=== PATIENT | male | born 1940 | race Caucasian/White ===

== ENCOUNTER 2016-07-07 09:57 | Emergency (ER) | payer MEDICARE, OTHER ==
[2016-07-07] MEDS ORDERED: Lidocaine 1% with EPINEPHrine 1:100,000 20 ML MDV INJECT ONE (10:31)
[2016-07-07] MEDS ORDERED: cefTRIAXone 250 MG Vial IM ONE (11:06)
[2016-07-07] MEDS ORDERED: cefTRIAXone 1,000 MG VIAL IM ONE (11:30)
--- NOTE | 2016-07-07 11:39 | EDM.PDOC ---
ED HPI GENERAL MEDICAL PROBLEM - General Chief Complaint: General Stated Complaint: UNDER ARM Time Seen by Provider: 07/07/16 10:31 Source of Information: Reports: Patient History Limitations: Reports: No Limitations - History of Present Illness INITIAL COMMENTS - FREE TEXT/NARRATIVE: History of present illness: [26-year-old male presenting with an abscess to right axillary region. Patient has strained some amount of purulent drainage from it but has not managed to totally evacuate it at this time] Review of systems: As per history of present illness and below otherwise all systems reviewed and negative. Past medical history: As per history of present illness and as reviewed below otherwise noncontributory. Surgical history: As per history of present illness and as reviewed below otherwise noncontributory. Social history: No reported history of drug or alcohol abuse. Family history: As per history of present illness and as reviewed below otherwise noncontributory. Physical exam: HEENT: Atraumatic, normocephalic, pupils reactive, negative for conjunctival pallor or scleral icterus, mucous membranes moist, throat clear, neck supple, nontender, trachea midline. Lungs: Clear to auscultation, breath sounds equal bilaterally, chest nontender. Heart: S1S2, regular, negative for clicks, rubs, or JVD. Abdomen: Soft, nondistended, nontender. Negative for masses or hepatosplenomegaly. Negative for costovertebral tenderness. Pelvis: Stable nontender. Genitourinary: Deferred. Rectal: Deferred. Extremities: Atraumatic, negative for cords or calf pain. Neurovascular unremarkable. Neuro: Awake, alert, oriented. Cranial nerves II through XII unremarkable. Cerebellum unremarkable. Motor and sensory unremarkable throughout. Exam nonfocal. Skin: Infected sebaceous cyst in right axillary region Area cleaned in the usual fashion with sterile 11 blade used to make a small incision with manual drainage performed with a culture swab obtained. Diagnostics: [] Therapeutics: [Rocephin, I&D] Impression: [Infected sebaceous cyst] Plan: [By mouth antibiotics followup with primary care] Definitive disposition and diagnosis as appropriate pending reevaluation and review of above. - Related Data Allergies Allergy/AdvReac Type Severity Reaction Status Date / Time No Known Allergies Allergy Verified 07/07/16 10:08 Home Meds: Home Meds Lisinopril 20 mg PO DAILY 07/07/16 [History] Omeprazole Magnesium [Prilosec Otc] 20 mg PO DAILY 07/07/16 [History] Sulfamethoxazole/Trimethoprim [Bactrim Ds Tablet] 1 each PO BID #20 tablet 07/07 [Rx] Past Medical History Cardiovascular History: Reports: Hypertension Gastrointestinal History: Reports: Hiatal Hernia - Infectious Disease History Infectious Disease History: Reports: Chicken Pox, Mumps - Past Surgical History Other Musculoskeletal Surgeries/Procedures:: left knee replacement Social & Family History - Tobacco Use Smoking Status *Q: Never Smoker Second Hand Smoke Exposure: No - Caffeine Use Caffeine Use: Reports: Energy Drinks Caffeine Use Comment: 1drink/week - Recreational Drug Use Recreational Drug Use: No ED ROS GENERAL - Review of Systems Review Of Systems: See Below (See history of present illness) ED EXAM, GENERAL - Physical Exam Exam: See Below (History of present illness) Course - Vital Signs Last Recorded V/S: Last Vital Signs Temp 36.5 C 07/07/16 11:06 Pulse 90 07/07/16 11:06 Resp 16 07/07/16 11:06 BP 131/82 07/07/16 11:06 Pulse Ox 93 L 07/07/16 11:06 - Orders/Labs/Meds Meds: Medications Discontinued Medications Generic Name Dose Route Start Last Admin Trade Name Shayna PRN Reason Stop Dose Admin Ceftriaxone Sodium 2,000 mg 07/07/16 11:06 Rocephin IM 07/07/16 11:07 ONETIME ONE Lidocaine/Epinephrine 20 ml 07/07/16 10:31 Xylocaine 1% With Epinephrine 1:100,000 INJECT 07/07/16 10:32 ONETIME ONE Departure - Departure Time of Disposition: 11:40 Disposition: Home, Self-Care 01 Condition: good Clinical Impression: Sebaceous cyst of right axilla - Discharge Information Prescriptions: Sulfamethoxazole/Trimethoprim [Bactrim Ds Tablet] 1 each PO BID #20 tablet Forms: ED Department Discharge Additional Instructions: The following information is given to patients seen in the emergency department who are being discharged to home. This information is to outline your options for follow-up care. We provide all patients seen in our emergency department with a follow-up referral. The need for follow-up, as well as the timing and circumstances, are variable depending upon the specifics of your emergency department visit. If you don't have a primary care physician on staff, we will provide you with a referral. We always advise you to contact your personal physician following an emergency department visit to inform them of the circumstance of the visit and for follow-up with them and/or the need for any referrals to a consulting specialist. The emergency department will also refer you to a specialist when appropriate. This referral assures that you have the opportunity for follow-up care with a specialist. All of these measure are taken in an effort to provide you with optimal care, which includes your follow-up. Under all circumstances we always encourage you to contact your private physician who remains a resource for coordinating your care. When calling for follow-up care, please make the office aware that this follow-up is from your recent emergency room visit. If for any reason you are refused follow-up, please contact the [facility] Emergency Department at and asked to speak to the emergency department charge nurse. Take medication as directed Followup with PCP 1-2 day Return to ED as needed as discussed
[2016-07-07] MEDS ORDERED: CEFTRIAXONE IM ONE (11:45)
[2016-07-07] MEDS ORDERED: LIDOCAINE 1% IM ONE (11:45)
[2016-07-07] MEDS ORDERED: Lidocaine 1% 6 ML ONE (11:53)
[2016-07-07 12:15] VITALS: BP 122/71
== END 2016-07-07 12:14 | disposition home or self-care (01) ==
LOC: MW.ED 09:57
DX: L72.3 Sebaceous cyst (principal); Z96.652 Presence of left artificial knee joint; I10 Essential (primary) hypertension; Z79.899 Other long term (current) drug therapy
CPT/HCPCS: 10060; 96372; 99283; J0696; 10061

== ENCOUNTER 2016-12-15 06:41 | Day surgery (SDC) | payer MEDICARE, OTHER ==
[2016-12-15] MEDS ORDERED: Lidocaine 2% 5 ML SDV ONE (07:10)
[2016-12-15] MEDS ORDERED: Propofol 200 MG/20 ML SDV ONE (07:10)
[2016-12-15] MEDS ORDERED: fentaNYL 100 MCG/2 ML SDV ONE (07:10)
--- NOTE | 2016-12-15 07:30 | PCM.PREANE ---
Preanesthetic Assessment - Anesthesia/Transfusion/Family Hx Anesthesia History: Prior Anesthesia Without Reaction Transfusion History: No Prior Transfusion(s) - Review of Systems General: No Symptoms Pulmonary: No Symptoms Cardiovascular: No Symptoms Gastrointestinal: No Symptoms Neurological: No Symptoms Other: Reports: None - Physical Assessment NPO Status Date: 12/14/16 O2 Sat by Pulse Oximetry: 97 Respiratory Rate: 16 Vital Signs: Last Vital Signs Temp 36.6 C 12/15/16 07:15 Pulse 66 12/15/16 07:15 Resp 16 12/15/16 07:15 BP 125/81 12/15/16 07:15 Pulse Ox 97 12/15/16 07:15 Height: 1.65 m Weight: 70.307 kg ASA Class: 2 Mental Status: Alert & Oriented x3 Airway Class: Mallampati = 2 Dentition: Reports: Normal Dentition, Missing Tooth/Teeth ROM/Head Extension: Full Lungs: Clear to Auscultation, Normal Respiratory Effort Cardiovascular: Regular Rate, Regular Rhythm, Murmurs - Allergies Allergies/Adverse Reactions: Allergies Allergy/AdvReac Type Severity Reaction Status Date / Time Penicillins Allergy Cannot Verified 12/01/16 10:25 Remember - Anesthesia Plan Pre-Op Medication Ordered: None - Acknowledgements Anesthesia Type Planned: MAC Pt an Appropriate Candidate for the Planned Anesthesia: Yes Alternatives and Risks of Anesthesia Discussed w Pt/Guardian: Yes Pt/Guardian Understands and Agrees with Anesthesia Plan: Yes PreAnesthesia Questionnaire Cardiovascular History: Reports: Heart Murmur, Hypertension Other Cardiovascular History: hx of mild aortic stenosis Gastrointestinal History: Reports: GERD, Hiatal Hernia Musculoskeletal History: Reports: Fracture - Infectious Disease History Infectious Disease History: Reports: Chicken Pox, Mumps - Past Surgical History Head Surgeries/Procedures: Reports: None Musculoskeletal Surgical History: Reports: Knee Replacement - SUBSTANCE USE Smoking Status *Q: Never Smoker Second Hand Smoke Exposure: No Recreational Drug Use History: No - HOME MEDS Home Medications: Home Meds Lisinopril 5 mg PO DAILY 07/07/16 [History] Omeprazole Magnesium [Prilosec Otc] 20 mg PO DAILY 07/07/16 [History] - CURRENT (IN HOUSE) MEDS Current Meds: Current Medications Hydrocodone Bitart/Acetaminophen (Kunia 325-5 Mg) 1 tab PO Q4H PRN PRN Reason: Pain Bupivacaine HCl (Sensorcaine-Mpf 0.25%) 10 ml INJECT ONETIME ONE Stop: 12/15/16 08:01 Clindamycin Phosphate 600 mg/ (Premix) 50 mls @ 150 mls/hr IV ONETIME ONE Stop: 12/15/16 08:19 Last Admin: 12/15/16 07:14 Dose: 150 mls/hr Lactated Ringer's (Ringers, Lactated) 1,000 mls @ 125 mls/hr IV ASDIRECTED CECE Last Admin: 12/15/16 07:13 Dose: 125 mls/hr Discontinued Medications Fentanyl (Sublimaze) Confirm Administered Dose 100 mcg .ROUTE .STK-MED ONE Stop: 12/15/16 07:11 Lidocaine (Xylocaine-Mpf 2%) Confirm Administered Dose 5 ml .ROUTE .STK-MED ONE Stop: 12/15/16 07:11 Propofol (Diprivan 20 Ml) Confirm Administered Dose 400 mg .ROUTE .STK-MED ONE Stop: 12/15/16 07:11
[2016-12-15] MEDS ORDERED: Bupivacaine 0.25% 10 ML SDV ONE (07:42)
[2016-12-15] MEDS ORDERED: Bupivacaine 0.25% 10 ML SDV INJECT ONE (08:00)
[2016-12-15] MEDS ORDERED: Clindamycin Phosphate in D5W 600 MG in Premix Bag 1 BAG IV ONE ×2 (08:00)
[2016-12-15] MEDS ORDERED: Lactated Ringers 1,000 ML IV SCH (08:00)
[2016-12-15] MEDS ORDERED: Acetaminophen/HYDROcodone 325-5 MG Tab PO PRN (08:00)
--- NOTE | 2016-12-15 08:52 | PCM48HPAN ---
Post Anesthesia Note - EVALUATION WITHIN 48HRS OF ANESTHETIC Vital Signs in Normal Range: Yes Patient Participated in Evaluation: Yes Respiratory Function Stable: Yes Airway Patent: Yes Cardiovascular Function Stable: Yes Hydration Status Stable: Yes Pain Control Satisfactory: Yes Nausea and Vomiting Control Satisfactory: Yes Mental Status Recovered: Yes
--- NOTE | 2016-12-15 08:52 | PCM.POSTAN ---
POST ANESTHESIA ASSESSMENT - MENTAL STATUS Mental Status: Alert, Oriented - RESPIRATORY Respiratory Status: Respiratory Rate WNL, Airway Patent, O2 Saturation Stable - CARDIOVASCULAR CV Status: Pulse Rate WNL, Blood Pressure Stable - GASTROINTESTINAL GI Status: No Symptoms - POST OP HYDRATION Hydration Status: Adequate & Stable
[2016-12-15 09:47] VITALS: BP 102/49
--- NOTE | 2016-12-15 12:26 | PCM.OPNOTE ---
- General Post-Op/Procedure Note Date of Surgery/Procedure: 12/15/16 Operative Procedure(s): left carpal tunnel release Pre Op Diagnosis: left carpal tunnel release Post-Op Diagnosis: Same Anesthesia Technique: Local, MAC Primary Surgeon: Deanna Chambers Tobacco Cutter: Joya Davidson Complications: None Condition: Good Free Text/Narrative:: Intake & Output 12/14/16 12/15/16 12/15/16 23:59 07:59 15:59 Intake Total 1500 Balance 1500
--- NOTE | 2016-12-15 20:25 | OR ---
SURGEON: SHAKIR BYNUM MD DATE OF PROCEDURE: 12/15/2016 PREOPERATIVE DIAGNOSIS: Left carpal tunnel syndrome. POSTOPERATIVE DIAGNOSIS: Left carpal tunnel syndrome. PROCEDURE: Left carpal tunnel release. INDICATIONS: Mr. Cramer is a 76-year-old gentleman with left carpal tunnel syndrome. Risks and benefits of carpal tunnel release were discussed with him and he is in agreement to proceed. Risks were including, but not limited to, bleeding, infection, damage to underlying or overlying structures, possible need for future interventions, possible scarring. PROCEDURE IN DETAIL: After informed consent was obtained and placed on the chart, the patient was brought to the operating theater and laid in supine position. After adequate local MAC anesthetic was obtained, the area was prepped and draped and a time- out was completed to confirm side and site. Attention was then paid to exsanguination of the arm and insufflation of the tourniquet to 200 mmHg after confirmation with a time-out and local anesthesia infiltration. Attention was then paid to release of the ligament using a 15 blade through the skin and subcutaneous tissues until breach of the ligament, then dissection distally and proximally using a Littler scissor under direct visualization. Once adequately released, the area was irrigated and closed using 5-0 nylon stitch in a horizontal mattress fashion. The wound was dressed with Xeroform fluffs and a Kerlix gauze dressing and 2-inch Doc wrap. The patient tolerated the procedure well. All counts and needles were correct at the end of the case. FOLLOWUP INSTRUCTIONS: The patient will see us in 10 to 14 days, sooner if any problems, questions, or concerns. BRANDON / TEX /[id number]
== END 2016-12-15 09:15 | disposition home or self-care (01) ==
LOC: MW.SDS 06:41
PROVIDERS: ATTEND Plastic Surgery
DX: G56.02 Carpal tunnel syndrome, left upper limb (principal); M19.90 Unspecified osteoarthritis, unspecified site; I10 Essential (primary) hypertension; I35.0 Nonrheumatic aortic (valve) stenosis; M25.559 Pain in unspecified hip; M70.61 Trochanteric bursitis, right hip; Z88.0 Allergy status to penicillin; Z79.899 Other long term (current) drug therapy; Z96.659 Presence of unspecified artificial knee joint
CPT/HCPCS: 64721; J3010; J7120; 01810; J2704

== ENCOUNTER 2020-10-08 08:57 | Emergency (ER) | payer MEDICARE, OTHER ==
--- NOTE | 2020-10-08 11:12 | CR ---
Indication: Injury and pain Technique: Right wrist 2 views Comparison: None Findings/Impression: Bones: Ill-defined fracture in the distal right radius is likely intra-articular. There is dorsal angulation of the distal fracture fragment. No other osseous abnormality. 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 Soft tissues: Moderate soft tissue swelling. Dictated by Shar Oliver MD @ 10/08/2020 11:10:35 AM (Electronically Signed)
--- NOTE | 2020-10-08 12:38 | EDM.PDOC ---
ED HPI GENERAL MEDICAL PROBLEM - General Chief Complaint: Upper Extremity Injury/Pain Stated Complaint: HIT BY A HORSE AND HURT R WRIST Time Seen by Provider: 10/08/20 12:36 Source of Information: Reports: Patient History Limitations: Reports: No Limitations - History of Present Illness INITIAL COMMENTS - FREE TEXT/NARRATIVE: 80-year-old male presents for right wrist injury. Patient horse bucked at home causing him to fall backwards landing on his right outstretched arm. He notes pain to his wrist. He denies any head injury or LOC. right wrist Pain Score (Numeric/FACES): 8 - Related Data Allergies Allergy/AdvReac Type Severity Reaction Status Date / Time Penicillins Allergy Cannot Verified 10/08/20 13:10 Remember Home Meds: Home Meds Lisinopril 5 mg PO DAILY 07/07/16 [History] Omeprazole Magnesium [Prilosec Otc] 20 mg PO DAILY 07/07/16 [History] traMADol HCl [Tramadol HCl] 50 mg PO Q6H PRN #30 tablet 12/15/16 [Rx] Past Medical History Cardiovascular History: Reports: Heart Murmur, Hypertension Other Cardiovascular History: hx of mild aortic stenosis Gastrointestinal History: Reports: GERD, Hiatal Hernia Musculoskeletal History: Reports: Fracture - Infectious Disease History Infectious Disease History: Reports: Chicken Pox, Mumps - Past Surgical History Head Surgeries/Procedures: Reports: None Musculoskeletal Surgical History: Reports: Knee Replacement Social & Family History - Caffeine Use Caffeine Use: Reports: Energy Drinks Caffeine Use Comment: 1drink/week Review of Systems - Review of Systems Review Of Systems: Comprehensive ROS is negative, except as noted in HPI. ED EXAM, GENERAL - Physical Exam Exam: See Below Exam Limited By: No Limitations General Appearance: Alert, WD/WN, No Apparent Distress Ears: Hearing Grossly Normal Throat/Mouth: Normal Voice, No Airway Compromise Head: Atraumatic, Normocephalic Neck: Normal Inspection Respiratory/Chest: No Respiratory Distress, No Accessory Muscle Use Cardiovascular: Normal Peripheral Pulses, Regular Rate, Rhythm Extremities: Other (swelling and TTP of right wrist; neurologically intact) Neurological: Alert, Normal Cognition, Normal Gait Psychiatric: Normal Affect, Normal Mood Skin Exam: Warm, Dry, Intact, Normal Color Course - Vital Signs Last Recorded V/S: Last Vital Signs Temp 98.2 F 10/08/20 13:09 Pulse 78 10/08/20 13:09 Resp 18 10/08/20 13:09 BP 134/73 10/08/20 13:09 Pulse Ox 97 10/08/20 13:09 - Re-Assessments/Exams Free Text/Narrative Re-Assessment/Exam: 10/08/20 12:37 x-ray imaging reveals a distal radius fracture. We'll splint patient and discharged with orthopedic follow-up. Patient has been placed on the orthopedic follow-up list. Departure - Departure Time of Disposition: 13:15 Disposition: Home, Self-Care 01 Condition: Good Clinical Impression: Wrist fracture Qualifiers: Encounter type: initial encounter Fracture type: closed Laterality: right Qualified Code(s): S62.101A - Fracture of unspecified carpal bone, right wrist, initial encounter for closed fracture - Discharge Information Instructions: Wrist Fracture Treated With Immobilization Referrals: PCP,Not In Area [Primary Care Provider] - Forms: ED Department Discharge
[2020-10-08 13:20] VITALS: BP 134/73; PULSE 78
== END 2020-10-08 13:09 | disposition home or self-care (01) ==
LOC: MW.ED 08:57
DX: S52.501A Unspecified fracture of the lower end of right radius, initial encounter for closed fracture (principal); I10 Essential (primary) hypertension; K21.9 Gastro-esophageal reflux disease without esophagitis; Z88.0 Allergy status to penicillin; Z79.899 Other long term (current) drug therapy; V80.010A Animal-rider injured by fall from or being thrown from horse in noncollision accident, initial encounter; Y92.009 Unspecified place in unspecified non-institutional (private) residence as the place of occurrence of the external cause
CPT/HCPCS: 73090-26-RT; 73090-RT; 99283-25

== ENCOUNTER 2021-07-24 08:00 | Emergency (ER) | payer MEDICARE, OTHER ==
[2021-07-24 08:20] VITALS: BP 160/102; PULSE 71
[2021-07-24] MEDS ORDERED: Lidocaine 1% with EPINEPHrine 1:100,000 20 ML MDV INJECT ONE (08:27)
== END 2021-07-24 09:36 | disposition home or self-care (01) ==
LOC: MW.ED 08:00
DX: S01.80XA Unspecified open wound of other part of head, initial encounter (principal); I10 Essential (primary) hypertension; K21.9 Gastro-esophageal reflux disease without esophagitis; Z79.899 Other long term (current) drug therapy; Z88.0 Allergy status to penicillin; W01.0XXA Fall on same level from slipping, tripping and stumbling without subsequent striking against object, initial encounter
CPT/HCPCS: 36415; 70450; 70450-26; 72125; 72125-26; 85610; 99284-25

== ENCOUNTER 2022-10-04 07:32 | Emergency (ER) | payer MEDICARE, OTHER ==
[2022-10-04] MEDS ORDERED: Bacitracin Oint 28.35 GM Tube TOP STA (08:25)
[2022-10-04] MEDS ORDERED: Bacitracin Oint 1 GM U/D Packet TOP ONE (08:31)
[2022-10-04 08:59] VITALS: BP 138/76; PULSE 55
[2022-10-04] MEDS ORDERED: Bacitracin Oint 28.35 GM Tube TOP SCH (14:00)
== END 2022-10-04 08:59 | disposition home or self-care (01) ==
LOC: MW.ED 07:32
DX: R23.3 Spontaneous ecchymoses (principal); I10 Essential (primary) hypertension; I25.2 Old myocardial infarction; Z79.899 Other long term (current) drug therapy; Z88.0 Allergy status to penicillin; Z79.01 Long term (current) use of anticoagulants
CPT/HCPCS: 10060; 99283; 99284

== ENCOUNTER 2023-07-24 15:16 | Emergency (ER) | payer MEDICARE, OTHER ==
[2023-07-24] MEDS: Sodium Chloride 0.9% 10 ML Syringe FLUSH PRN (16:00)
[2023-07-24] MEDS: Sodium Chloride 0.9% 2.5 ML Syringe FLUSH PRN (16:01)
[2023-07-24 16:12] LABS: BASOPHILS ABSOLUTE AUTO 0.04 K/uL (0.00-0.20); BASOPHILS PERCENT AUTO 0.6 % (0.0-1.0); EOSINOPHILS ABSOLUTE AUTO 0.45 K/uL (0.00-0.45); EOSINOPHILS PERCENT AUTO 6.3 % (0.0-6.0); HEMATOCRIT 38.3 % (42.0-52.0); HEMOGLOBIN 12.8 g/dL (14.0-18.0); IMMATURE GRAN ABSOLUTE AUTO 0.02 K/uL (0.00-0.05); IMMATURE GRAN PERCENT AUTO 0.3 % (0.0-0.4); LYMPHOCYTES ABSOLUTE AUTO 0.95 K/uL (1.00-4.80); LYMPHOCYTES PERCENT AUTO 13.3 % (24.0-44.0); MEAN CORPUSCULAR HEMOGLOBIN 31.1 pg (28.0-32.0); MEAN CORPUSCULAR HGB CONC 33.4 g/dL (32.0-36.0); MEAN CORPUSCULAR VOLUME 93.2 fL (83.0-99.0); MEAN PLATELET VOLUME 9.4 fL (9.4-12.4); MONOCYTES ABSOLUTE AUTO 0.63 K/uL (0.00-0.80); MONOCYTES PERCENT AUTO 8.8 % (0.0-8.0); NEUTROPHILS ABSOLUTE AUTO 5.03 K/uL (1.80-7.70); NEUTROPHILS PERCENT AUTO 70.7 % (41.0-71.0); PLATELET COUNT,PLT 202 K/uL (150-400); RED BLOOD CELL COUNT 4.11 M/uL (4.52-5.90); WHITE BLOOD CELL COUNT,WBC 7.12 K/uL (3.9-11.3)
[2023-07-24 16:36] LABS: INR 1.07 (0.86-1.11)
[2023-07-24 16:56] LABS: A/G RATIO 1.1 (0.9-1.6); ALANINE AMINOTRANSFERASE,ALT 29 IU/L (14-63); ALBUMIN 3.6 g/dL (3.4-5.0); ALKALINE PHOSPHATASE 69 U/L (46-116); ASPARTATE AMNIOTRANSFERASE,AST 27 IU/L (15-37); BILIRUBIN TOTAL 0.3 mg/dL (0.2-1.0); BLOOD UREA NITROGEN,BUN 42 mg/dL (7.0-18.0); CALCIUM 8.6 mg/dL (8.5-10.1); CARBON DIOXIDE,CO2 24.3 mmol/L (21.0-32.0); CHLORIDE,CL 105 mmol/L (98-107); CREATININE 1.1 mg/dL (0.8-1.3); GLUCOSE RANDOM 93 mg/dL (74-106); MAGNESIUM 1.9 mg/dL (1.8-2.4); POTASSIUM,K 4.5 mmol/L (3.5-5.1); PROTEIN TOTAL,TP 6.8 g/dL (6.4-8.2); SODIUM,NA 141 mmol/L (136-148)
[2023-07-24 17:00] LABS: ESTIMATED GFR 66 mL/min (>60)
[2023-07-24 18:00] VITALS: BP 128/74; PULSE 60
== END 2023-07-24 17:59 | disposition home or self-care (01) ==
LOC: MW.ED 15:16
DX: S51.011A Laceration without foreign body of right elbow, initial encounter (principal); S00.83XA Contusion of other part of head, initial encounter; S00.511A Abrasion of lip, initial encounter; I10 Essential (primary) hypertension; I25.2 Old myocardial infarction; E78.00 Pure hypercholesterolemia, unspecified; Z88.0 Allergy status to penicillin; Z79.899 Other long term (current) drug therapy; Z79.01 Long term (current) use of anticoagulants; Z90.49 Acquired absence of other specified parts of digestive tract; W19.XXXA Unspecified fall, initial encounter; Y92.019 Unspecified place in single-family (private) house as the place of occurrence of the external cause
CPT/HCPCS: 36415; 70450; 70486; 72125; 73080; 80053; 83735; 84484; 85025; 85610; 85730; 86850; 86900; 86901; 93005; 99284; J3490; 12002; 93010; 99283

== ENCOUNTER 2024-02-13 16:53 | Emergency (ER) | payer MEDICARE, OTHER ==
[2024-02-13] MEDS: Lidocaine 1% with EPINEPHrine 1:100,000 10 ML MDV INJECT ONE (19:51)
[2024-02-13] MEDS: Bacitracin Oint 1 GM U/D Packet TOP ONE (19:51)
[2024-02-13 19:57] VITALS: BP 101/62; PULSE 90
== END 2024-02-13 19:56 | disposition home or self-care (01) ==
LOC: MW.ED 16:53
DX: S01.01XA Laceration without foreign body of scalp, initial encounter (principal); I10 Essential (primary) hypertension; I25.2 Old myocardial infarction; E78.00 Pure hypercholesterolemia, unspecified; Z88.2 Allergy status to sulfonamides; Z79.01 Long term (current) use of anticoagulants; Z79.899 Other long term (current) drug therapy; Z90.49 Acquired absence of other specified parts of digestive tract; W00.0XXA Fall on same level due to ice and snow, initial encounter
CPT/HCPCS: 12002; 70450; 70450-26; 99283